=== PATIENT | female | born 1965 | race Caucasian/White ===

== ENCOUNTER → 2017-06-16 | Outpatient (CLI) | payer BC ==
--- NOTE | 2017-06-22 13:42 | Diagnostic Imaging Report ---
Bilateral screening mammogram 2D views with tomosynthesis The current study was also evaluated with a Computer Aided Detection (CAD) system. Indication: Screening. No current complaints stated on the questionnaire. COMPARISON: 03/13/12. Findings: The breasts are composed of extremely dense parenchyma which would decrease mammographic sensitivity. In the upper aspect of the right breast there is a circumscribed asymmetry seen along the right MLO projection tomography views image 34/55 3. There is also an asymmetry with increased density along the medial aspect of the cc projection tomography images 43/57. The left breast demonstrate also suggestion of a circumscribed lesion with oval asymmetry along the medial aspect seen on tomography CCA measure 11/52. IMPRESSION: Extremely dense breasts and bilateral asymmetries seen. Focal compression views and ultrasound evaluation is recommended. BI-RADS 0. ACR BI-RADS Category 0: Incomplete. (Needs additional imaging evaluation). Result letter will be mailed to the patient. Note: At least 10% of breast cancer is not imaged by mammography. Dictated by: Dictated on workstation # [id number]
== END ==
LOC: RAD 14:42
PROVIDERS: ATTEND Obstetrics & Gynecology
DX: Z12.31 Encounter for screening mammogram for malignant neoplasm of breast (principal)
CPT/HCPCS: 77067

== ENCOUNTER → 2017-06-28 | Outpatient (CLI) | payer BC ==
--- NOTE | 2017-06-28 08:47 | Diagnostic Imaging Report ---
EXAMINATION: Bilateral diagnostic mammogram with tomography. The current study was also evaluated with a Computer Aided Detection (CAD) system. INDICATION: Bilateral asymmetries seen on the prior exam. FINDINGS: The asymmetry in the upper aspect of the right breast is confirmed as a nodule with circumscribed margins seen. It is partially obscured by adjacent fibroglandular tissue. The asymmetry in the medial aspect of the right breast demonstrates no definite underlying lesion and is perhaps related to summation artifact of parenchyma. In the medial aspect of the left breast, there is also an asymmetry previously seen which demonstrates no definite underlying lesion. IMPRESSION: Confirmed nodule in the upper aspect of the right breast. The asymmetries in the medial aspect of each breast demonstrate no definite underlying lesion with focal compression views. An ultrasound evaluation is pending. ACR BI-RADS Category 0: Incomplete. (Needs additional imaging evaluation). Result letter will be mailed to The patient. Note: At least 10% of breast cancer is not imaged by mammography. Dictated by: Dictated on workstation # [id number]
--- NOTE | 2017-06-28 09:43 | Diagnostic Imaging Report ---
Bilateral breast ultrasound. INDICATION: Asymmetries in very dense breasts bilaterally. The four quadrants and retroareolar region of the breast of each side were scanned. FINDINGS: There are multiple simple and mildly complicated cysts with septations and areas of ductal dilatation seen in both breasts. On the left side at 6 o'clock zone, a 1.2-cm cyst and at 5 o'clock zone a 1.3-cm cyst is seen. In the right breast, a 1.7-cm cyst at 1 o'clock zone 4 cm from the nipple and an adjacent cyst at 1:30 o'clock position measuring 1.2 cm are seen. At 3 o'clock zone there is an area of cluster of cysts or ductal dilatation suggested. This could relate to fibrocystic change. No definite or suspicious mass. IMPRESSION: Multiple simple and complicated cysts in the breasts, explaining the mammographic asymmetries. No suspicious mass. ACR BI-RADS Category 2: Benign findings. Result letter will be mailed to the patient. Note: At least 10% of breast cancer is not imaged by mammography. Dictated by: Dictated on workstation # [id number]
== END ==
LOC: RAD 07:42
PROVIDERS: ATTEND Obstetrics & Gynecology
DX: N60.11 Diffuse cystic mastopathy of right breast (principal); N60.12 Diffuse cystic mastopathy of left breast
CPT/HCPCS: 77066

== ENCOUNTER → 2021-05-12 | Outpatient (REF) ==
--- NOTE | 2021-05-12 15:12 | Diagnostic Imaging Report ---
INDICATION: Pain status post injury. COMPARISON: None. FINDINGS: Three views of the left foot demonstrate no acute fracture or dislocation. There are no focal osseous lesions. There is no soft tissue swelling. Joint spaces are well maintained. No radiopaque foreign bodies are seen. IMPRESSION: No acute fractures or dislocations of the left foot. Dictated by: Dictated on workstation # [id number]
== END ==
LOC: OCC 14:57
PROVIDERS: ATTEND Nurse Practitioner Family
DX: M79.672 Pain in left foot (principal)
CPT/HCPCS: 73630